=== PATIENT | male | born 1955 | race Caucasian/White ===

== ENCOUNTER 2021-11-15 09:31 | Outpatient (REF) | payer MEDICARE, SELFPAY ==
[2021-11-15 11:23] LABS: MANUAL DIFF FLAG NO
[2021-11-15 11:30] LABS: Basophils Absolute Auto 0.1 X10*3/uL (0.0-0.2); Basophils Percent Auto 0.8 % (0-2); Eosinophils Absolute Auto 0.3 X10*3/uL (0.0-0.4); Eosinophils Percent Auto 3.2 % (0-4); Hematocrit 49.4 % (42.0-52.0); Hemoglobin 17.1 g/dl (14.0-18.0); Imm Gran Abs Auto 0.04 X10*3/uL (0.00-0.03); Imm Gran Pct Auto 0.5 % (0.0-0.4); Lymphocytes Absolute Auto 2.4 X10*3/uL (1.2-4.9); Lymphocytes Percent Auto 30.3 % (20-40); Mean Corpuscular HGB Conc 34.6 g/dl (31.0-36.0); Mean Corpuscular Hemoglobin 32.1 pg (27.0-33.0); Mean Corpuscular Volume 92.9 fL (80.0-98.0); Mean Platelet Volume 10.8 fL (9.4-12.4); Monocytes Absolute Auto 0.5 X10*3/uL (0.1-1.2); Monocytes Percent Auto 6.1 % (2-11); Neutrophils Absolute Auto 4.7 x10*3/uL (2.0-8.3); Neutrophils Percent Auto 59.1 % (45-73); Platelet Count 208 X10*3/uL (160-400); Red Blood Count 5.32 X10*6/uL (4.60-5.80); Red Cell Distribution Width 13.7 % (11.0-16.0); White Blood Count 7.9 X10*3/uL (4.8-10.8)
[2021-11-15 11:48] LABS: Alanine Aminotransferase 27 U/L (0-40); Alkaline Phosphatase 69 U/L (39-117); Anion Gap 13 (12-20); Aspartate Amino Transferase 21 U/L (5-37); Bilirubin Total 0.9 mg/dL (0.0-1.0); Blood Urea Nitrogen 14 mg/dL (9-16); Calcium 9.4 mg/dL (8.4-10.2); Carbon Dioxide 28 mmol/L (22-29); Chloride 104 mmol/L (96-108); Cholesterol 188 mg/dL; Estimated Glomerular Filt Rate > 60; Glucose Fasting 90 mg/dL (60-99); HDL Cholesterol 42 mg/dL; LDL Cholesterol Calculated 121 mg/dl; Potassium 4.2 mmol/L (3.3-5.1); Sodium 141 mmol/L (135-145); Total Protein 7.1 g/dL (6.5-8.0); Triglycerides 129 mg/dL
[2021-11-15 12:01] LABS: ~HepC Num1 0.13 S/CO (0.00-0.79); ~Hepatitis C Antibody Nonreactive (Nonreactive)
[2021-11-15 12:12] LABS: Prostate Specific Antigen 1.35 ng/mL (<0.05-4.0)
[2021-11-19 11:47] LABS: Testosterone, Total 472 ng/dL (250-1100)
== END 2021-11-15 09:32 | disposition home or self-care (01) ==
LOC: HO.MANLDS 09:31
PROVIDERS: PCP Internal Medicine; Visit Provider Internal Medicine
DX: Z00.00 Encounter for general adult medical examination without abnormal findings (principal); Z13.6 Encounter for screening for cardiovascular disorders; Z12.5 Encounter for screening for malignant neoplasm of prostate; Z11.59 Encounter for screening for other viral diseases
CPT/HCPCS: 36415; 80053; 80061; 84153; 84403; 85025; 86803

== ENCOUNTER 2024-05-12 12:25 | Outpatient (REF) | payer MEDICARE, SELFPAY | END 2024-05-12 12:26 | disposition home or self-care (01) | LOC: HO.LAB 12:25 | PROVIDERS: PCP Internal Medicine; Visit Provider Physician Assistant | DX: A37.90 Whooping cough, unspecified species without pneumonia (principal) | CPT/HCPCS: 86615 ==

== ENCOUNTER 2025-01-01 08:23 | Outpatient (REF) | payer MEDICARE, SELFPAY ==
--- OUTSIDE RECORDS SUMMARY | 2025-01-01 08:32 | XMS_ITS | Data Portability ---
Author Organization [place] [facility], Allergy Address [address] [address] Care Team Providers Care Chief Inspector Name Role Phone HERRERA PEÑA Primary Care Provider [phone] DINAH RAY Referring Provider [phone] Assessment No assessment recorded. Plan of Treatment Reminders Order Date Submit Date Provider Last Modified By Organization Details Last Modified Time Details Appointments Allergy Test 2024 01:00P M [facility] Not available Not available Not available Establish ed 30 2024 10:30A M ELVIA Roberts MD Not available Not available Not available Lab None recorded. Referral None recorded. Procedures allergy testing, skin prick (PROC) 2024 025 [email or web address] Not available 12/23/2024 15:17:35 intraderm al allergy skin testing (PROC) 2024 025 [email or web address] Not available 12/23/2024 15:17:35 pulmonary function test procedure (PROC) 2024 025 [email or web address] Not available 12/23/2024 15:17:35 pulse oximetry (PROC) 2024 025 [email or web address] Not available 12/23/2024 15:17:36 Surgeries None recorded. Imaging None recorded. Medication Orders None recorded. Patient TargetsNo targets recorded. Patient InstructionsNo instructions recorded. Reason for Referral None Reported. Problems Name Problem SNOMED Code Status Onset Date Resolution Date Notes Provider Name and Address Organization Details Recorded Time Chronic cough 89169332 Active 2024 ELVIA Roberts MD 100 [facility] [address], [place], [address], [facility] - [facility] 5 14:08:43 Allergic rhinitis 39681079 Active 2024 ELVIA Roberts MD [address] [address], [place], [address], [facility] 14:17:44 Gastroesoph ageal reflux disease without esophagitis 978469676 Active 2024 ELVIA Roberts MD [address] [address], [place], [address], [facility] 14:17:48 Non-allergi c rhinitis 219340256530 Active 2024 ELVIA Roberts MD [address] [address], [place], [address], [facility] 14:18:21 Seasonal allergic rhinitis 396221649 Active 2024 ELVIA Roberts MD [address] [address], [place], [address], [facility] 14:18:21 Problem Notes None recorded. Procedures Surgical History Date Name Laterality Status Provider Name and Address Organization Details Recorded Time 12/16/2024 FFL_RE completed ELVIA DHILLON MD [address], [address], [facility] 12/16/2024 14:10:32 Imaging Results None recorded. Procedure Notes None recorded. Medical Equipment None Reported. Medications Name Sig Start Date Stop Date Status Note LastModified by Organization Details LastModified Time fluticasone 250 mcg-salmeter ol 50 mcg/dose blistr powdr for inhalation INHALE 1 PUFF BY MOUTH TWICE DAILY active Not Available Not Available No t Available azelastine 137 mcg (0.1 %) nasal spray USE 1 SPRAY IN EACH NOSTRIL TWICE DAILY DIRECTED active Not Available Not Available Not Available fluticasone 100 mcg-salmeter ol 50 mcg/dose blistr powdr for inhalation INHALE 1 PUFF BY MOUTH TWICE DAILY active Not Available Not Available No t Available albuterol sulfate HFA 90 mcg/actuatio n aerosol inhaler INHALE 2 INHALATION BY MOUTH EVERY 4 HOURS NEEDED FOR SHORTNESS OF BREATH OR WHEEZING active Not Available Not Available Not Available fluticasone propionate 50 mcg/actuatio n nasal spray,suspen priscilla SHAKE LIQUID AND USE 1 SPRAY IN EACH NOSTRIL TWICE DAILY NEEDED FOR NASAL CONGESTION active Not Available Not Available N ot Available Vitals Date Recorded Body height Body mass index (BMI) Body weight Provider Name and Address Organization Details Last Updated DateTime 12/16/2024 182.88 cm 33.2 kg/m2 015885.13 g Nano Barreto [place] [facility] 12/16/2024 13:51:36 Social History Question Answer Notes LastModified by Organizat ion Details LastModified Time Tobacco Smoking Status Never Smoker Nano arana [facility] 12/16/2024 13:48:24 How Many Years Have You Consumed Alcohol? 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 3 Information not available 12/16/2024 Do You Have Any Pets? No Information not available 12/16/2024 Are You Passively Exposed To Smoke? No Information not available 12/16/2024 Are There Any Smokers In Your House? Yes Information not available 12/16/2024 Sex: Unknown Functional Status Question Answer Note LastModified by Organization Details LastModified Time How many times per week do you consume alcohol? 5-7 times per week Information not available 12/16/2024 Do you use any illicit or recreational drugs? No Information not available 12/16/2024 Do you or have you ever used any other forms of tobacco or nicotine? Yes Information not available 12/16/2024 What is your level of alcohol consumption? Moderate Information not available 12/16/2024 Do you or have you ever used smokeless tobacco? Never used smokeless tobacco Information not available 12/16/2024 What is your occupation? [email or web address] Information not available 12/15/2024 Do you or have you ever used e-cigarettes or vape? Never used electronic cigarettes Information not available 12/16/2024 What type of noise exposure are you exposed to? noExposureToExcessiveNoise Infor mation not available 12/16/2024 Mental Status None recorded. Family History Nothing Reported. Medical History Condition Response Allergies/Hayfever N Heart Problems N Anxiety N Tonsil Infections N Emphysema N Migraines Y Thyroid Problems N Glaucoma N Depression N COPD N Developmental Delay N Nasal or Sinus Problems Y Anemia N Immune System Disorder N Anesthesia Complications N Heart Attack ([place]) N Other Skin Condition N Diabetes N Rhinitis N Bleeding Disorder N Food Allergy N Arthritis Y Hearing Loss Y Hyperlipidemia N Cancer N Stroke N Dementia N Nasal polyps N Asthma N High Cholesterol N Sleep Disorder N GERD/Reflux N Liver Disease N Headaches N Fibromyalgia N Hypertension N Speech Delay N Kidney Disease N Past Encounters Encounter ID Performer Location Encounter Start Date Encounter Closed Date Diagnosis/Indication Diagnosis SNOMED-CT Code Diagnosis ICD10 Code Diagnosis Note [id number] ELVIA DHILLON MD [facility] on [address] [place] [phone] 12/16/2024 13:43:32 12/16/2024 14:36:22 Chronic cough 92753809 R05.3 Likely multifacto rial. It has not been very responsive to asthma, reflux or allergy treatments . I would like to obtain allergy testing to see if he has significan t allergy. If he does not improve I would consider a longer trial of omeprazole . Allergic rhinitis 957819 04 J30.89 Exam and history are consistent with allergic rhinitis. We will obtain allergy testing to clarify the extent of allergy with f/u to review. Gastroesop hageal reflux disease without esophagitis 329776105 K21.9 I will consider a longer trial of omeprazole if allergy testing is not revealing. Non-allergic rhinitis 31 61247327 01 J31.0 Seasonal a llergic rhinitis 747748899 J30.2 Health Concerns Section Related Observation LastModified by Organization Detai ls LastModified Time None Recorded Concern Status LastModified by Organization Details LastModified Time None Recorded Advance Directives Directive None Recorded Payers Insurance Date Sequence Insurance Name Policy Number Policy [place] Covered Member ID [place] Member ID Guarantor Name 12/28/2024 1 [facility] (MEDICARE REPLACEMENT/A DVANTAGE - PPO) [id number] Nikko Pride [id number] Nikko Pelaeznchard Notes Date Note Type Note Provider Name and Address Organization Details Recorded Time 12/16/2024 text/html He presents with a productive cough for 1 year. He has tried omeprazole without benefit (took it for 2 weeks). He has tried albuterol and fluticasone inhalers without benefit. He has seen 2 gas desulfurizer who felt the problem is not pulmonary. He has not had allergy testing. He has tried zyrtec and azelastine. ELVIA DHILLON MD [address] [place] [address], [phone], [facility] - [facility] 12/16/2024 14:19:29
[2025-01-01 08:39] LABS: MANUAL DIFF FLAG NO
[2025-01-01 09:01] LABS: Basophils Absolute Auto 0.1 X10*3/uL (0.0-0.2); Basophils Percent Auto 0.7 % (0-2); Eosinophils Absolute Auto 0.2 X10*3/uL (0.0-0.4); Eosinophils Percent Auto 3.2 % (0-4); Hematocrit 48.3 % (42.0-52.0); Hemoglobin 16.9 g/dl (14.0-18.0); Imm Gran Abs Auto 0.03 X10*3/uL (0.00-0.03); Imm Gran Pct Auto 0.4 % (0.0-0.4); Lymphocytes Absolute Auto 2.1 X10*3/uL (1.2-4.9); Lymphocytes Percent Auto 31.6 % (20-40); Mean Corpuscular Hemoglobin 32.7 pg (27.0-33.0); Mean Corpuscular Volume 93.4 fL (80.0-98.0); Mean Platelet Volume 10.4 fL (9.4-12.4); Monocytes Absolute Auto 0.5 X10*3/uL (0.1-1.2); Monocytes Percent Auto 7.1 % (2-11); Neutrophils Absolute Auto 3.9 x10*3/uL (2.0-8.3); Platelet Count 205 X10*3/uL (160-400); Red Blood Count 5.17 X10*6/uL (4.60-5.80); Red Cell Distribution Width 13.2 % (11.0-16.0); White Blood Count 6.8 X10*3/uL (4.8-10.8)
[2025-01-01 09:14] LABS: Estimated Average Glucose 97 mg/dL
[2025-01-01 10:19] LABS: Alanine Aminotransferase 39 U/L (0-40); Albumin Level 3.9 g/dL (3.5-5.0); Alkaline Phosphatase 66 U/L (39-117); Anion Gap 10 (12-20); Aspartate Amino Transferase 30 U/L (5-37); Bilirubin Total 0.9 mg/dL (0.0-1.0); Blood Urea Nitrogen 17 mg/dL (9-16); Calcium 9.3 mg/dL (8.4-10.2); Carbon Dioxide 28 mmol/L (22-29); Chloride 107 mmol/L (96-108); Cholesterol 165 mg/dL (<200); Estimated Glomerular Filt Rate > 60; Glucose Random 105 mg/dL (60-115); HDL Cholesterol 42 mg/dL (>40); LDL Cholesterol Calculated 104 mg/dL (<100); Potassium 4.3 mmol/L (3.3-5.1); Sodium 141 mmol/L (135-145); Triglycerides 99 mg/dL (<150)
[2025-01-01 10:37] LABS: Prostate Specific Antigen 1.58 ng/mL (<0.05-4.0)
== END 2025-01-01 08:24 | disposition home or self-care (01) ==
LOC: HO.LAB 08:23
PROVIDERS: Physician Assistant; PCP Internal Medicine; Visit Provider Internal Medicine
DX: E78.00 Pure hypercholesterolemia, unspecified (principal); N40.0 Benign prostatic hyperplasia without lower urinary tract symptoms; Z13.1 Encounter for screening for diabetes mellitus; Z12.5 Encounter for screening for malignant neoplasm of prostate
CPT/HCPCS: 36415; 80053; 80061; 83036; 84153; 85025